=== PATIENT | male | born 1980 ===

== ENCOUNTER 2017-08-24 09:41 | Day surgery (SDC) | payer OTHER ==
[2017-08-24 10:14] VITALS: O2SAT 100
[2017-08-24 10:15] VITALS: BMI 24.3
[2017-08-24] MEDS ORDERED: Propofol 10 mg/ml Inj (20 ML) ONE (12:55)
[2017-08-24 13:23] VITALS: TEMP 97.8
[2017-08-24 13:57] VITALS: BP 124/79; PULSE 68; RESP 14
== END 2017-08-24 14:10 | disposition home or self-care (01) ==
LOC: C.ENDO 09:41
PROVIDERS: ATTEND Internal Medicine Gastroenterology
DX: R12 Heartburn (principal); K21.0 Gastro-esophageal reflux disease with esophagitis; K29.70 Gastritis, unspecified, without bleeding
CPT/HCPCS: 43239; 88305; 88312; 88313; 88342; J2001; J2704